=== PATIENT | female | born 1955 | race Two or more races ===

== ENCOUNTER 2018-06-19 19:32 | Inpatient (IN) | payer OTHER ==
[~2018-06-19] VITALS: Ht 154.9 cm; Wt 56.7 kg
[2018-06-19 21:16] LABS: BASOPHILS % 0.6 % (0.0-2.0); EOSINOPHILS % 0.7 % (0.0-5.0); HEMATOCRIT. 38.6 % (36.0-48.0); HEMOGLOBIN. 13.3 g/dL (12.0-16.0); LYMPHOCYTES % 27.2 % (20.0-50.0); MEAN CORPUSCULAR HEMOGLOBIN 32.1 pg (28.0-32.0); MEAN CORPUSCULAR VOLUME 93.4 fL (81.0-99.0); MEAN PLATELET VOLUME 7.1 fl (7.4-10.4); MONOCYTES % 6.7 % (2.0-8.0); NEUTROPHILS % 64.8 % (40.0-76.0); PLATELET 392 x1000/uL (130-400); RED BLOOD CELL COUNT 4.13 mill/uL (4.2-5.4); RED CELL DISTRIBUTION WIDTH 13.5 % (11.6-14.6)
[2018-06-19 21:22] LABS: CHLORIDE 107 mEq/L (98-107)
[2018-06-19 21:28] LABS: PROTHROMBIN TIME 9.8 sec (9.1-11.1)
[2018-06-20] VITALS (7 sets, daily range): BP systolic 108–134; BP diastolic 56–71
[2018-06-20] MEDS ORDERED: HYDROCODONE/ACETAMINOPHEN 5/325MG TABLET PO NR (02:15)
[2018-06-20] MEDS ORDERED: MAGNESIUM/ALUMINUM HYDROXIDE/SIMETHICONE 30ML UDC PO PRN ×2 (04:30→10:00)
[2018-06-20] MEDS ORDERED: HYDROCODONE/ACETAMINOPHEN 5/325MG TABLET PO PRN (04:30)
[2018-06-20] MEDS ORDERED: ACETAMINOPHEN 650MG/20.3ML UDC PO PRN (04:30)
[2018-06-20] MEDS ORDERED: MVI, ADULT NO.1 10 ML, FOLIC ACID 1 MG, THIAMINE HCL 100 MG in SODIUM CHLORIDE 0.9% 1,0... IV SCH ×4 (06:30)
[2018-06-20] MEDS ORDERED: ASPIRIN 81MG EC TABLET PO SCH (09:00)
[2018-06-20] MEDS ORDERED: DIPHENHYDRAMINE 50MG/ML VIAL IV PRN (10:00)
[2018-06-20] MEDS ORDERED: CLONIDINE 0.1MG TABLET PO PRN (10:00)
[2018-06-20] MEDS ORDERED: ONDANSETRON HCL 4MG/2ML VIAL IV PRN (10:00)
[2018-06-20] MEDS ORDERED: ACETAMINOPHEN 325MG TABLET PO PRN (10:00)
[2018-06-20] MEDS ORDERED: CARB-33 PO (10:05)
[2018-06-20] MEDS ORDERED: MIRT30TA7 PO (10:06)
[2018-06-20] MEDS: CARBIDOPA/LEVODOPA 25/100MG TABLET PO SCH ×2 (11:49→18:09)
[2018-06-20] MEDS: SODIUM CHLORIDE 0.9% INJ 3ML FLUSH IVF SCH ×2 (14:58→21:45)
[2018-06-20] MEDS ORDERED: METOPROLOL TARTRATE 25MG TABLET PO SCH (21:00)
[2018-06-20] MEDS ORDERED: MIRTAZAPINE 30MG TABLET PO SCH (21:00)
[2018-06-21] MEDS ORDERED: REGADENOSON 0.4 MG/5 ML IV NR (11:15)
== END 2018-06-20 22:25 | disposition short-term general hospital (02) | DRG 313 ==
LOC: ER 19:32 → 6WST 06-20 03:13 → EDBEDREQTM 06-20 03:16 → EDBEDREQ 06-20 03:16 → ENRESERV 06-20 06:54
PROVIDERS: ADMIT Internal Medicine; ATTEND Internal Medicine
DX: R07.89 Other chest pain (principal); G20 Parkinson's disease; F41.9 Anxiety disorder, unspecified
CPT/HCPCS: 36415; 71045; 80053; 80061; 83880; 84484; 85025; 85610; 93005; 96365; 97162; 99285; J3411; J3490; J7030

== ENCOUNTER 2019-09-23 03:00 | Emergency (ER) | payer OTHER, MEDICAID ==
[~2019-09-23] VITALS: Ht 162.6 cm; Wt 59.0 kg
[~2019-09-23 03:00] MED LIST: CARB-33 PO; MIRT30TA7 PO
[2019-09-23] MEDS ORDERED: IBUPROFEN 600MG TABLET PO ONE (03:30)
[2019-09-23] MEDS ORDERED: DIAZEPAM 5 MG TABLET PO SCH (04:00)
[2019-09-23] MEDS ORDERED: DIAZEPAM 5 MG TABLET PO ONE (04:30)
[2019-09-23 06:03] VITALS: BP 130/68
== END 2019-09-23 06:04 | disposition home or self-care (01) ==
LOC: ER 04:41
DX: M54.2 Cervicalgia (principal); M54.9 Dorsalgia, unspecified; G20 Parkinson's disease; M62.830 Muscle spasm of back; Z79.899 Other long term (current) drug therapy
CPT/HCPCS: 99283